=== PATIENT | female | born 1990 | race African-American/Black ===

== ENCOUNTER 2020-08-20 03:08 | Emergency (ER) | payer OTHER ==
[~2020-08-20] VITALS: Ht 160 cm; Wt 89.8 kg
--- NOTE | 2020-08-20 03:15 | NUR ---
BIBS FOR C/O GENERALIZED BODY PAIN SEC TO SICKLE CELL DIS X 2 DAYS.. PT REPORTED, SHE HAS BEEN TAKING HER PRESCRIBED PAIN MEDS INCLUDING PERCOCET AND WAS SEEN AT AN URGENT CARE YESTERDAY , GIVEN IV FLUID W/ NO RESULT. PT AMBULATORY TO BED 1. WAS PLACED ON A MONITOR, VSS. WILL CONT TO MONITOR
--- NOTE | 2020-08-20 03:18 | NUR ---
DR KULKARNI AT BED SIDE
[2020-08-20] MEDS ORDERED: HYDROMORPHONE 1 MG/1 ML DISP.SYRIN ONE ×3 (03:24→04:58)
[2020-08-20] MEDS ORDERED: diphenhydrAMINE HCL 50 MG/ML VIAL ONE (03:24)
[2020-08-20] MEDS ORDERED: IV NS 0.9% 500 ML BAG IV ONE (03:30)
[2020-08-20] MEDS ORDERED: HYDROMORPHONE 1 MG/1 ML DISP.SYRIN IV ONE ×3 (03:30→05:00)
[2020-08-20] MEDS ORDERED: diphenhydrAMINE HCL 50 MG/ML VIAL IV ONE (03:30)
[2020-08-20] MEDS ORDERED: ONDANSETRON HCL/PF 4 MG/2 ML VIAL ONE (04:20)
[2020-08-20] MEDS ORDERED: ONDANSETRON HCL/PF - ER 4 MG/2 ML VIAL IV ONE (04:30)
--- NOTE | 2020-08-20 05:13 | NUR ---
IV removed. Catheter intact and site benign. Pressure and 4x4 applied to site. No bleeding noted.
--- NOTE | 2020-08-20 05:13 | NUR ---
Patient discharged to home in stable condition. Written and verbal after care instructions given. Patient verbalizes understanding of instruction.
[2020-08-20 05:14] VITALS: BP 118/79
== END 2020-08-20 05:14 | disposition home or self-care (01) ==
LOC: ER 03:11
DX: D57.00 Hb-SS disease with crisis, unspecified (principal); Z90.49 Acquired absence of other specified parts of digestive tract; Z98.890 Other specified postprocedural states; Z88.0 Allergy status to penicillin; Z88.1 Allergy status to other antibiotic agents
CPT/HCPCS: 96374; 96375; 96376; 99284; J1170 ×3; J1200; J2405 ×2; J7040

== ENCOUNTER 2022-01-06 16:27 | Emergency (ER) | payer OTHER ==
[~2022-01-06] VITALS: Ht 160 cm; Wt 104.3 kg
--- NOTE | 2022-01-06 17:22 | NUR ---
TO ER BED 16, BIBS C/O BODY AND JOINT PAIN HX OF SICKLE CELL DISEASE AND THINKS THAT SHE'S HAVING A FLARE UP, WANTS PAIN MEDICINE, AAOX3, BREATHING EVEN AND NON LABORED, AWAITING MD GARCÍA
[2022-01-06 17:27] VITALS: BP 127/74
[2022-01-06] MEDS: IV NS 0.9% 1,000 ML BAG IV ONE (18:07)
--- NOTE | 2022-01-06 18:08 | NUR ---
BENADRYL 25 MG IV ONCE PER DR LUGO. THE ORDER IS READ BACK, VERIFIED. NOTED AND CARRIED OUT.
[2022-01-06] MEDS ORDERED: HYDROMORPHONE INJ 2 MG/ML DISP.SYRIN ONE ×2 (18:11→20:46)
[2022-01-06] MEDS ORDERED: diphenhydrAMINE HCL 50 MG/ML VIAL ONE ×2 (18:11→20:46)
[2022-01-06] MEDS ORDERED: ONDANSETRON HCL/PF 4 MG/2 ML VIAL ONE (18:11)
[2022-01-06] MEDS: ONDANSETRON HCL/PF 4 MG/2 ML VIAL IVP ONE (18:15)
[2022-01-06] MEDS: diphenhydrAMINE HCL 50 MG/ML VIAL IV ONE ×2 (18:15→20:57)
[2022-01-06] MEDS: HYDROMORPHONE INJ 2 MG/ML DISP.SYRIN IV ONE ×2 (18:16→20:58)
[2022-01-06 18:29] LABS: BASOPHILS # (AUTO) 0.1 K/uL (0.0-0.2); BASOPHILS % (AUTO) 0.7 % (0.0-2.0); EOSINOPHILS % (AUTO) 3.7 % (0.0-6.0); HEMATOCRIT 35 % (33-45); HEMOGLOBIN 11.3 g/dL (11.5-14.8); LYMPHOCYTES # (AUTO) 2.4 K/uL (0.8-4.8); LYMPHOCYTES % (AUTO) 28.5 % (20.0-44.0); MEAN CORPUSCULAR HGB CONC 32 g/dl (31.0-36.0); MEAN CORPUSCULAR VOLUME 73 fL (82-100); MONOCYTES # (AUTO) 0.6 K/uL (0.1-1.30); MONOCYTES % (AUTO) 7.5 % (2.0-12.0); NEUTROPHILS % (AUTO) 59.6 % (43.0-81.0); WHITE BLOOD COUNT (AUTO) 8.3 K/uL (4.3-11.0)
[2022-01-06 18:49] LABS: CALCIUM, SERUM 9.1 mg/dL (8.5-10.1); CREATININE 1.1 mg/dL (0.6-1.3); POTASSIUM 3.5 mmol/L (3.5-5.1)
[2022-01-06 18:56] LABS: ALBUMIN 3.5 g/dL (3.4-5.0); BILIRUBIN,DIRECT 0.1 mg/dL (0.0-0.2); BILIRUBIN,TOTAL 0.2 mg/dL (0.2-1.0); TOTAL PROTEIN, SERUM 8.1 g/dL (6.4-8.2)
[2022-01-06 19:55] LABS: BILIRUBIN,URINE NEGATIVE (NEGATIVE); COLOR,URINE YELLOW (YELLOW); LEUKOCYTE ESTERASE ,URINE NEGATIVE (NEGATIVE); NITRITE, URINE NEGATIVE (NEGATIVE); PROTEIN,URINE NEGATIVE (NEGATIVE); UGLUCOSE NEGATIVE (NEGATIVE); UROBILINOGEN,URINE 0.2 EU/dL (0.2)
[2022-01-06 20:09] LABS: BACTERIA,URINE 1+ /HPF (None Seen); MUCUS,URINE Few /LPF (None Seen)
[2022-01-06 21:00] LABS: EOSINOPHILS % (MANUAL) 2 % (0-4); LYMPHOCYTES % (MANUAL) 32 % (16-48); MONOCYTES % (MANUAL) 5 % (0-11.0); NEUTROPHILS % (MANUAL) 61 (42-76)
[2022-01-06 21:03] LABS: PLATELET COUNT (AUTO) 303 K/uL (150-450)
[2022-01-06] MEDS ORDERED: oxyCODONE/APAP (5/325 MG) 1 UDTAB TABLET ONE (21:40)
[2022-01-06] MEDS: oxyCODONE/APAP (5/325 MG) 1 UDTAB TABLET PO ONE (21:44)
--- NOTE | 2022-01-06 21:56 | NUR ---
Patient discharged to home in stable condition. Written and verbal after care instructions given. Patient verbalizes understanding of instruction.
== END 2022-01-06 21:58 | disposition home or self-care (01) ==
LOC: ER 16:38
DX: D57.00 Hb-SS disease with crisis, unspecified (principal); Z90.49 Acquired absence of other specified parts of digestive tract; Z88.0 Allergy status to penicillin; Z88.8 Allergy status to other drugs, medicaments and biological substances
CPT/HCPCS: 36415; 80048; 80076; 81001; 84703; 85007; 85025; 85045; 96361; 96374; 96375; 96376; 99284; J1170 ×2; J1200 ×2; J2405; J7030

== ENCOUNTER 2022-01-08 18:24 | Emergency (ER) | payer OTHER ==
[~2022-01-08] VITALS: Ht 160 cm; Wt 99.8 kg
[2022-01-08 18:32] VITALS: BP 149/83
--- NOTE | 2022-01-08 20:17 | NUR ---
DR PATEL TALKING TO THE PATIENT IN TRIAGE ROOM.
== END 2022-01-08 20:38 | disposition home or self-care (01) ==
LOC: ER 18:30
DX: D57.00 Hb-SS disease with crisis, unspecified (principal); Z76.5 Malingerer [conscious simulation]; Z90.49 Acquired absence of other specified parts of digestive tract; Z88.8 Allergy status to other drugs, medicaments and biological substances